=== PATIENT | female | born 1955 | race African-American/Black ===

== ENCOUNTER 2022-07-30 17:02 | Inpatient (IN) | payer MEDICARE, MEDICAID ==
[~2022-07-30] VITALS: Ht 162.6 cm; Wt 73.9 kg
[~2022-07-30 17:02] MED LIST: ABAC1TAB3 PO; ATAZ300C PO; CAPTOPRIL; DRONABINOL; FAMO20TA8 PO; HYDROCHLORO; ONDA4TAB5 PO; TRIA1CAP6 PO; [UNRECOGNIZED DRUG - CODE]
[2022-07-30] MEDS ORDERED: ONDANSETRON HCL 4MG/2ML INJ IV STA (17:10)
[2022-07-30] MEDS ORDERED: SODIUM CHLORIDE 0.9% 1,000 ML IV ONE (17:15)
[2022-07-30 17:32] LABS: BASOPHILS % 0.7 % (0.0-2.0); EOSINOPHILS % 0.2 % (0.0-5.0); HEMATOCRIT. 49.1 % (36.0-48.0); HEMOGLOBIN. 16.9 g/dL (12.0-16.0); LYMPHOCYTES % 26.3 % (20.0-50.0); MEAN CORPUSCULAR HEMOGLOBIN 30.8 pg (28.0-32.0); MEAN CORPUSCULAR VOLUME 89.4 fL (81.0-99.0); MEAN PLATELET VOLUME 7.1 fl (7.4-10.4); MONOCYTES % 12.7 % (2.0-8.0); NEUTROPHILS % 60.1 % (40.0-76.0); PLATELET 281 x1000/uL (130-400); RED BLOOD CELL COUNT 5.48 mill/uL (4.2-5.4); RED CELL DISTRIBUTION WIDTH 13.7 % (11.6-14.6)
[2022-07-30 17:39] LABS: CHLORIDE 99 mEq/L (98-107)
[2022-07-30 17:48] LABS: ETHANOL BLOOD < 10 mg/dL
[2022-07-30] MEDS ORDERED: ONDANSETRON HCL 4MG/2ML INJ IV NR (19:30)
[2022-07-30] MEDS ORDERED: ACETAMINOPHEN 325MG TABLET PO PRN ×2 (19:45)
[2022-07-30] MEDS ORDERED: POTASSIUM CHLORIDE 20MEQ TABLET SR PO ONE (19:45)
[2022-07-30] MEDS ORDERED: MAGNESIUM/ALUMINUM HYDROXIDE/SIMETHICONE 30ML UDC PO PRN (19:45)
[2022-07-30] MEDS ORDERED: CLONIDINE 0.1MG TABLET PO PRN (19:45)
[2022-07-30] MEDS ORDERED: IPRATROPIUM/ALBUTEROL 0.5-3(2.5)MG/3ML NEB NEB PRN (19:45)
[2022-07-30] MEDS ORDERED: POTASSIUM CHLORIDE INJ 40 MEQ in DEXT 5% WATER 500 ML IV ONE (19:45)
[2022-07-30] MEDS ORDERED: GUAIFENESIN 200MG/10ML SUGAR FREE UDC PO PRN (19:45)
[2022-07-30] MEDS ORDERED: ONDANSETRON HCL 4MG/2ML INJ IV PRN (19:45)
[2022-07-30] MEDS ORDERED: METOCLOPRAMIDE HCL 10MG/2ML VIAL IV ONE (19:45)
[2022-07-30] MEDS ORDERED: NA PHOS,M-B/NA PHOS,DI-BA ENEMA 118ML PR PRN (19:45)
[2022-07-30 21:13] LABS: CLARITY URINE CLEAR (CLEAR); COLOR URINE YELLOW (YELLOW); KETONES URINE 2+ (NEGATIVE); LEUKOCYTE ESTERASE URINE NEGATIVE (NEGATIVE); NITRITE URINE NEGATIVE (NEGATIVE); OCCULT BLOOD URINE NEGATIVE (NEGATIVE); PROTEIN URINE 2+ (NEGATIVE); SPECIFIC GRAVITY URINE 1.026 (1.005-1.030)
[2022-07-31] MEDS: DEXT 5%/0.9% NACL 1,000 ML IV SCH ×2 (01:50→06:01)
[2022-07-31 06:18] LABS: CHLORIDE 101 mEq/L (98-107)
[2022-07-31 06:31] LABS: PHOSPHORUS 2.1 mg/dL (2.5-4.9); T4 FREE 1.19 ng/dL (0.76-1.46)
[2022-07-31 11:30] LABS: FOLIC ACID (FOLATE) SERUM >20 ng/mL ng/mL (>5.38); VITAMIN B12 SERUM 527 pg/mL (211-911)
[2022-07-31 11:33] VITALS: BP 144/71
== END 2022-07-31 12:10 | disposition left against medical advice (07) ==
LOC: ER 17:02 → 6EST 19:32 → SUPCPDRO 19:44
PROVIDERS: ADMIT Internal Medicine; ATTEND Internal Medicine
DX: K83.09 Other cholangitis (principal); E87.1 Hypo-osmolality and hyponatremia; R11.2 Nausea with vomiting, unspecified; E87.6 Hypokalemia; I10 Essential (primary) hypertension; J44.9 Chronic obstructive pulmonary disease, unspecified; K82.8 Other specified diseases of gallbladder; Z53.29 Procedure and treatment not carried out because of patient's decision for other reasons; R73.9 Hyperglycemia, unspecified; Z79.899 Other long term (current) drug therapy
CPT/HCPCS: 36415; 74176; 76705; 80048; 80053; 80320; 81003; 82607; 82746; 83735; 84100; 84439; 84443; 84484; 85025; 93005; 99285; J2405; J2765; J3480; J7030; J7060; G0480